=== PATIENT | female | born 1950 | race Asian ===

== ENCOUNTER → 2016-11-11 | Outpatient (CLI) | payer MEDICARE, OTHER ==
[~2016-11-11] MED LIST: PRILOSEC PO; SYNTHROID PO; TYLENOL #3 PO; ZETIA PO
--- NOTE | ~2016-11-11 | MY29 ---
[facility] A Service of [facility] RADIOLOGY TEXT RESULTS PATIENT: FENG CORCORAN LOCATION: [facility] : 50 UNIT #: [id number] AGE: [address]: Kendal Moncada MD SEX: F ORDER DR: [id number] [facility] [address] [place], [place] [address] [id number] O MR#: [id number] Acc #: [id number] NAME: FENG CORCORAN : 1950 SEX: F STUDY DATE/TIME: 11/11/2016 8:10 UNIT: [facility] ROOM: STUDY DESCRIPTION: MY TONIE SCREENING W/ CAD BILAT Attending Physician: Kendal Moncada M.D. Referring Physician: Kendal Moncada M.D. Ordering Physician: Kendal Moncada M.D. Primary Care Physician: Kendal Moncada M.D. MEDICAL IMAGING REPORT This report is preliminary unless electronic signature is present EXAM Digital screening mammograms, 11/11/2016, [facility]. HISTORY 66-year-old woman, no risk elevation. Annual screen. COMPARISON Mammograms date to 03/10/2006 with most recent 11/11/2015. FINDINGS Digital imaging of each breast was completed utilizing a two-view examination of each breast in craniocaudal and mediolateral-oblique projections. Review and interpretation of digital mammograms include a second review in conjunction with FDA-approved CAD device. There is a normal parenchymal presentation bilaterally consistent with the patient's age. There are no breast masses imaged and no parenchymal asymmetry is visualized. There are no suspicious microcalcifications and I see no focal architectural disturbance. IMPRESSION Negative screening digital mammogram. One-year followup recommended. Patients over the age of 40 are entered into a reminder system with target due date for the next mammogram. A result letter will also be sent to the patient. BIRADS: 1 Negative Dictated by... Jack Agosto M.D. [facility] A Service of [facility] RADIOLOGY TEXT RESULTS PATIENT: FENG CORCORAN LOCATION: [facility] : 50 UNIT #: [id number] AGE: [address]: Kendal Moncada MD SEX: F ORDER DR: THIS IS AN ELECTRONICALLY VERIFIED REPORT Jack Agosto M.D. at 11/11/2016 1:44 PM Jose TD: 11/11/2016 12:27 JOB #: [id number] MEDICAL IMAGING REPORT Page 1 of 1 COPY
== END | disposition home or self-care (01) ==
LOC: CWCC 07:44
DX: Z12.31 Encounter for screening mammogram for malignant neoplasm of breast (principal)
CPT/HCPCS: G0202